=== PATIENT | female | born 1960 | race Caucasian/White ===

== ENCOUNTER 2018-03-08 05:53 | Day surgery (SDC) | payer MEDICARE ==
[~2018-03-08] VITALS: Ht 170.2 cm; Wt 94.3 kg
[~2018-03-08 05:53] MED LIST: EC-NAPROSYN500 MG PO; METFORMIN500 M2 PO; NP THYROID90 MG PO
[2018-03-08 13:38] VITALS: BP 139/67
== END 2018-03-08 08:20 | disposition home or self-care (01) ==
LOC: ORM 05:53
PROVIDERS: ATTEND Anesthesiology Pain Medicine
PROC: 3E0U33Z Introduction of Anti-inflammatory into Joints, Percutaneous Approach (ICD-10-PCS; principal; 2018-03-08)
PROC: 3E0U3BZ Introduction of Anesthetic Agent into Joints, Percutaneous Approach (ICD-10-PCS; 2018-03-08)
DX: M46.1 Sacroiliitis, not elsewhere classified (principal); M54.5 Low back pain